=== PATIENT | male | born 1970 | race Caucasian/White ===

== ENCOUNTER 2017-09-15 10:18 | Emergency (ER) | payer SELFPAY ==
[~2017-09-15] VITALS: Ht 172.7 cm; Wt 68.0 kg
[2017-09-15] MEDS ORDERED: SODIUM CHLORIDE 0.9% 500 ML IVB ONE (10:34)
[2017-09-15] MEDS ORDERED: PANTOPRAZOLE 40 MG/10 ML VIAL IV STA (10:34)
[2017-09-15] MEDS ORDERED: ONDANSETRON HCL 4 MG/2 ML VIAL IV ONE (10:45)
[2017-09-15] MEDS ORDERED: HYDROmorphone HCL 2 MG/ML VL IV ONE (10:45)
[2017-09-15 10:56] VITALS: BP 138/76
[2017-09-15 11:14] LABS: Eosinophils # (auto) 0 uL; Monocytes # (auto) 1.1 uL; Monocytes % (auto) 5.5 % (0.0-12.0); Platelet Count (auto) 321 10^3/uL (140-450)
[2017-09-15 11:19] LABS: Basophils # (auto) 0 uL; Basophils % (auto) 0.2 % (0.0-2.0); Hematocrit 55.1 % (41.0-53.0); Hemoglobin 18.6 g/dL (13.5-17.5); Lymphocytes # (auto) 0.9 uL; Lymphocytes % (auto) 4.7 % (10.0-50.0); Mean Corpuscular Hemoglobin 29.7 pg (28.0-32.0); Mean Corpuscular Hgb Conc. 33.8 g/dL (32.0-36.0); Mean Corpuscular Volume 87.9 fL (80.0-100.0); Neutrophils # (auto) 17.5 uL; Neutrophils % (auto) 89.6 % (37.0-80.0); Nucleated Red Blood Cells % 0.1 %; Red Blood Cells 6.26 10^6/uL (4.5-5.90); Red Cell Distribution Width 13.6 % (11.8-14.3); White Blood Cell 19.5 10^3/uL (4.4-10.8)
[2017-09-15 11:57] LABS: BUN/Creatinine Ratio 9.6; Calcium 10.2 mg/dL (8.5-10.1); Potassium 4.4 mmol/L (3.5-5.1)
[2017-09-15 11:58] LABS: Albumin 4.5 g/dL (3.4-5.0); Bilirubin, Total 1.3 mg/dL (0.2-1.0); Magnesium 2.3 mg/dL (1.6-2.6)
[2017-09-15] MEDS ORDERED: GASTROGRAFIN 120 ML SOL ONE (12:11)
== END 2017-09-15 12:11 | disposition left against medical advice (07) ==
LOC: EDBD 10:18 → ER 10:18
DX: K56.609 Unspecified intestinal obstruction, unspecified as to partial versus complete obstruction (principal); D72.829 Elevated white blood cell count, unspecified; F17.210 Nicotine dependence, cigarettes, uncomplicated; F12.10 Cannabis abuse, uncomplicated; Z90.89 Acquired absence of other organs; Z53.29 Procedure and treatment not carried out because of patient's decision for other reasons
CPT/HCPCS: 36415; 74176; 80053; 82150; 83690; 83735; 85025; 94761; 96361; 96374; 96375; 99285; C9113; J1170; J2405